=== PATIENT | female | born 1940 | race Two or more races ===

== ENCOUNTER 2022-11-22 | Inpatient (IN) | payer OTHER ==
[~2022-11-22] VITALS: Ht 149.9 cm; Wt 60.8 kg
--- NOTE | 2022-11-22 00:11 | NUR ---
PTE SE OBSERVA A/O X4. PTE LLEGA EN AMBULANCIA POR FRACTURA DE CADERA LADO MCKINLEY Y ES ACEPTADA POR ORTOPEDA DR MERRITT. PTE SE OBSERVA CON ANGIO 20 DE AMBULANCIA EN MANO IZQUIERDA Y CON QUIROZ.
[2022-11-22] MEDS ORDERED: VERELAN PM200 MG PO (00:14)
--- NOTE | 2022-11-22 00:23 | NUR ---
PARAMEDICO NO ENTREGA A PTE A EN TURNO.
--- NOTE | 2022-11-22 02:31 | NUR ---
PTE ES EVALUADO POR DR GUNDERSON. PTE SE ORIENTA SOBRE TRATAMIENTO MEDICO Y VERBALIZA QUE ACEPTA. SE EJECUTA ORDEN MEDICA EN ARMENDARIZ TOTALIDAD.
--- NOTE | 2022-11-22 07:13 | NUR ---
PTE ALERTA,ESTABLE Y ORIENTADA.SE EDUCA SOBRE EL TRATAMIENTO QUE RECIBIRA EN EL HOSPITAL Y ESTA REFIERE ENTENDER.SE MANTIENE EN LA ESPERA DEL
== END 2022-11-24 14:53 | DRG 522 ==
LOC: ER → SEC-K 09:11 → SURH 09:11
PROVIDERS: ADMIT Orthopaedic Surgery; ATTEND Orthopaedic Surgery
PROC: 0SRS0JZ Replacement of Left Hip Joint, Femoral Surface with Synthetic Substitute, Open Approach (ICD-10-PCS; principal; 2022-11-22 17:45)
DX: S72.092A Other fracture of head and neck of left femur, initial encounter for closed fracture (principal); S05.12XA Contusion of eyeball and orbital tissues, left eye, initial encounter; W01.198A Fall on same level from slipping, tripping and stumbling with subsequent striking against other object, initial encounter; Y93.01 Activity, walking, marching and hiking; Y92.009 Unspecified place in unspecified non-institutional (private) residence as the place of occurrence of the external cause; Y99.9 Unspecified external cause status; Z20.822 Contact with and (suspected) exposure to COVID-19